=== PATIENT | female | born 1985 | race Caucasian/White ===

== ENCOUNTER 2017-04-26 19:44 | Emergency (ER) | payer OTHER ==
[~2017-04-26] VITALS: Ht 175.3 cm; Wt 86.4 kg
[2017-04-26 19:50] VITALS: BP 146/76; PULSE 66; RESP 16; O2SAT 100
--- NOTE | 2017-04-26 20:17 | ED.REPORT ---
HPI-General Illness Date of Service Apr 26, 2017 ED Provider: Bryce Biggs MD Pt is a 36 week 31 y/o female who presents to the ED complaining of nausea s/p exposure to carbon monoxide onset 22:30 last night. She was exposed to a leak in the hot water tank at her work for about 3 hours. Additional symptoms include headache and dizziness that have improved since yesterday. She denies vomiting, diarrhea, SOB, chest pain, rash or cough. Nursing Notes Stated Complaint: CARBON MONOXIDE EXPOSURE Chief Complaint: General Complaint Nursing Notes Reviewed: Yes Allergies: Coded Allergies: No Known Allergies (Unverified , 04/26/17) General Time Seen by MD: 20:17 Chief Complaint Other (Nausea) Hx Obtained From: Patient Arrived By: Walk-in Onset Occurred: Yesterday Recent Healthcare: No recent doctor visit, No recent hospitalization Similar Sx Previous: Yes Past Medical History Past Medical History 36 weeks Past Surgical History [place] teeth removal Smoking History Unknown if Ever Smoker Ambulatory Status Independent Review of Systems Full Review of Systems Respiratory: Denies: Non-productive cough, Prod cough, clear, Shortness of breath Cardiovascular: Denies: Chest pain GI: Reports: Nausea, Denies: Diarrhea, Vomiting Skin: Denies Rash Neurologic: Reports: Dizziness, Headache Complete sys rev & neg: except as marked. Physical Exam FHT 120-130 Vital Signs Vital Signs Date Time Temp Pulse Resp B/P Pulse Ox O2 Delivery O2 Flow Rate FiO2 04/26/17 22:39 70 114/67 100 Room Air 04/26/17 19:50 36.8 66 16 146/76 100 Room Air Initial VS: Reviewed Head / Eyes: Atraumatic, Normocephalic Neck: Supple, Full range of motion Extremities: Vascular intact, Neuro intact, No swelling, No tenderness Neurologic: Alert, Oriented, Nonfocal Psychiatric: Mood/affect normal, Behavior normal, Normal thought content General/Constitutional: Awake, Alert, No acute distress, Cooperative, Not toxic appearing Respiratory / Chest: Atraumatic, Breath sounds NL, Breath sounds = bilat, No respiratory distress Cardiovascular: Heart rate NL, Regular rhythm, Heart sounds NL, No murmurs Abdomen: Abdomen gravid Skin: Atraumatic, Color NL, No rash, Warm, Dry No cyanosis of lips or digits Re-Eval/Medical Decision Med Decision/Clinical Course ABG 7.44/31/64/20.8 on FiO2 of 21. Carboxyhemoglobin level 0.9 methemoglobin 0.9 (abnormal at 1.5 or greater) Patient had mild symptoms of CO poisoning yesterday but symptoms have resolved. ABG today shows safe levels of carboxy and methemoglobin. Patient is reassured [facility] the baby. heart tones here were in the 120s. She will follow up with her ST[facility] LETTERER for routine care Source of Hx: Old records Time of Eval: 22:14 Patient Status: Condition improved Re-Evaluation/Progress Note: Patient rechecked. Discussed all labs and plan for discharge. Patient understands and agrees with plan. F/U instructions and RTER warnings given. All questions addressed at this time. Counseled Regarding: Diagnosis, Lab results, Need for follow-up, When/why to return to ED Discharge & Departure Primary Impression: Carbon monoxide exposure Additional Impressions: Weeks of gestation: 36 weeks Qualified Code: Z3A.36 - 36 weeks gestation of Nausea Dizziness Disposition: Home Discharge Condition All VS Reviewed: Yes Condition: Stable Patient Instructions: Carbon Monoxide Poisoning (ED) Additional Instructions: Thank you for entrusting us with your care tonight. The carbon monoxide level in your bloodstream did not return at a dangerous level today. I am glad that her symptoms have improved from yesterday. Please proceed to the [facility] center for monitoring of your baby. Follow-up with your ST[facility] as scheduled. Return for new or worsening symptoms Referrals: Tomas Garrett MD (PCP) Scribe Attestation Portions of this note were transcribed by Bina Ramirez and Lauryn Alan. I, Dr. Biggs, personally performed the history, physical exam and medical decision-making; I reviewed and confirmed the accuracy of the information in the transcribed note. Signed by: Zev Mccollum, 04/26/17. copies to: Tomas Garrett MD, Gary R DO Apr 26, 2017 20:17 Bina Ramirez Apr 26, 2017 20:42 LAURYN ALAN Apr 26, 2017 22:14
--- NOTE | 2017-04-26 21:57 | ABG ---
DateTimeAnalyzed 21:50:00 -_ pH ____7.440 - 7.350 7.450 pCO2 ___31.1__ -mmHg 35.0 45.0 pO2 ___64.1__ -mmHg 69.0 116 HCO3- ___20.8__ -mmol/L 22.0 26.0 ABE ___-2.1__ -mmol/L -2.0 2.0 tHb ___11.7__ -g/dL 12.0 18.0 O2Hb ___90.3__ -% COHb ____0.9__ -% 0.0 1.5 MetHb ____0.9__ -% 0.4 1.5 sO2 ___92.0__ -% FIO2 ___21.0__ -% Drawn By MM - Date/Time Notified____ 21:56:00 -_ Spontaneous_RR ___18.0__ -b/min Notified Whom DR ANDELIN - B 755 -mmHg tO2 ___14.8__ -Vol% [place] test _Positive -
[2017-04-26 22:39] VITALS: BP 114/67; PULSE 70; O2SAT 100
== END 2017-04-26 22:40 | disposition home or self-care (01) ==
LOC: SED 19:44
DX: O9A.213 Injury, poisoning and certain other consequences of external causes complicating pregnancy, third trimester (principal); T58.91XA Toxic effect of carbon monoxide from unspecified source, accidental (unintentional), initial encounter; Y93.89 Activity, other specified; Y92.69 Other specified industrial and construction area as the place of occurrence of the external cause; Y99.0 Civilian activity done for income or pay; Z3A.36 36 weeks gestation of pregnancy; R42 Dizziness and giddiness; R51 Headache; R11.0 Nausea

== ENCOUNTER 2017-05-21 02:38 | Inpatient (IN) | payer OTHER ==
[~2017-05-21] VITALS: Ht 177.8 cm; Wt 88.5 kg
[2017-05-21] MEDS ORDERED: Lactated Ringer's 1,000 ML IV SCH ×4 (04:42→12:55)
[2017-05-21] MEDS ORDERED: Lactated Ringer's 1,000 ML IV PRN (04:42)
[2017-05-21] MEDS ORDERED: Methylergonovine 0.2 mg/mL Inj IM PRN ×3 (04:45→12:45)
[2017-05-21] MEDS ORDERED: Sodium Chloride LOK Flush 10 mL Syringe IVFLUSH PRN (04:45)
[2017-05-21] MEDS ORDERED: fentaNYL-PF 50 mCg/mL 2 mL Inj IVPUSH PRN ×2 (04:45→12:55)
[2017-05-21] MEDS ORDERED: Ondansetron 2 mg/mL 2 mL Inj IVPUSH PRN ×2 (04:45→12:55)
[2017-05-21] MEDS ORDERED: Carboprost 250 mCg/mL Inj IM PRN ×3 (04:45→12:45)
[2017-05-21] MEDS ORDERED: Oxytocin 10 Unit/mL Inj IM PRN ×3 (04:45→12:45)
[2017-05-21] MEDS ORDERED: Oxytocin 30 Units/500 mL LR 30 UNITS in IV Premix 1 EACH IV PRN ×3 (04:45→12:45)
[2017-05-21] MEDS ORDERED: Hemorrhage Kit, Post Partum XX ONE ×3 (04:45→12:45)
--- NOTE | 2017-05-21 05:22 | HP ---
[address] [address] HISTORY AND PHYSICAL PATIENT: IRLANDA JON : 1985 MR#: [id number] ADMIT: 05/21/2017 JOB ID: [id number] DATE: 05/21/2017 [facility] NOTE: This is a 31-year-old, G 3, P 2, AB 0 woman, followed prenatally at [facility], see record for details. She has previously had two vaginal births, and is anticipating a third. Due date is May 25, 2017, placing her at 39 and 3/7 weeks of gestation on admission. course has been complicated by approximately 50 pounds of weight gain. She has been bothered by chronic sciatic issues. She previously was a smoker although she discontinued smoking with positive test. She declined the quad screen but did have level two sonogram. Note prior macrosomia, with patient requesting labor induction at 39+ weeks of gestation in an effort to have a smaller baby or at least avoid more significant macrosomia. In summary, then, the patient at 39 and 3/7 weeks of gestation, we admitted to [facility] at her request for labor induction, having favorable cervix, all in the setting of prior macrosomia. PHYSICAL EXAMINATION: On admission, last height, weight and blood pressure in the office 70 inches, 1193 pounds, 114/70. Neck: No thyromegaly. Lungs: Clear to auscultation and percussion. Heart: Regular in rate and rhythm. Abdomen: Fundal height 38 cm, positive heartbeat, vertex presentation. No surgical scarring. Pelvic examination: Last cervical check in the office at 4 cm dilatation, 75% effacement, -2 station (May 20, 2017).. DIAGNOSTIC DATA: Admission lab work to yet be obtained. IMPRESSION: 1. A 37 and 3/7 weeks . 2. Admission for labor induction at patient's request in setting of prior macrosomia. 3. Increased weight gain in (50 pounds). 4. Declined quad screen although underwent level two sonogram. 5. Negative group B strep, Rhesus factor positive (Rh), rubella immune. 6. Received tetanus, diphtheria and pertussis (Tdap) in . 7. HEIDI 1 per colposcopically directed biopsies, following low-grade squamous intraepithelial lesion (LGSIL) Pap, for planned Pap repeat . 8. Prior smoker, discontinued with positive test. 9. Chronic sciatic problems. 10. Prior intrauterine device use, planned control method for (?). 11. Reproductive history: Vaginal delivery x2, both induced, last child larger at 9 pounds at 41 weeks of gestation. Now, current . 12. No known drug allergies. 13. Family history of Bartter syndrome (the patient's brother and his have two children with this condition). PLAN: The patient will be admitted to [facility] on May 21, 2017 per her request for labor induction in the setting of prior macrosomia, noting favorable cervix.
[2017-05-21 07:59] LABS: Mean Corpuscular Hemoglobin 29.5 pg (27.0-35.0); Mean Corpuscular Volume 87.8 fL (81-100)
[2017-05-21] MEDS ORDERED: PNV1TABL9 PO (10:14)
[2017-05-21] MEDS ORDERED: fentaNYL 2 mCg/mL-Bupivicaine 0.125% 100 mL Premix EPIDURAL ONE (12:39)
[2017-05-21] MEDS ORDERED: HYDROcodone-APAP 5-325 mg Tablet PO PRN (12:45)
[2017-05-21] MEDS ORDERED: Witch Hazel-Glycerin Pads TOPICAL PRN (12:45)
[2017-05-21] MEDS ORDERED: Benzocaine (Dermoplast) 20% 60 Gm Spray TOPICAL PRN (12:45)
[2017-05-21] MEDS ORDERED: Measles-Mumps-Rubella Vaccine 0.5 mL Inj SUBQ ONE (12:45)
[2017-05-21] MEDS ORDERED: Influenza (Adult) Vaccine 0.5 mL Syringe IM ONE (12:45)
[2017-05-21] MEDS ORDERED: LANOlin HPA 7 Gm Ointment TOPICAL PRN (12:45)
[2017-05-21] MEDS ORDERED: TdaP Vaccine 0.5 mL Inj IM ONE (12:45)
[2017-05-21] MEDS ORDERED: Atropine 1 mg/10 mL (Code) Syringe IVPUSH PRN (12:55)
[2017-05-21] MEDS ORDERED: fentaNYL 2 mCg/mL-Bupiv 0.125% 100 ML EPIDURAL SCH (12:55)
[2017-05-21] MEDS ORDERED: Phenylephrine/NS-PF 100 mCg/mL 5 mL Syringe IVPUSH PRN (12:55)
[2017-05-21] MEDS ORDERED: Lactated Ringer's 500 ML IV ONE (12:55)
[2017-05-21] MEDS ORDERED: EPHEDrine Sulfate 50 mg/mL Inj IVPUSH PRN (12:55)
--- NOTE | 2017-05-21 12:55 | PCM.HPANE ---
Patient Data Surgeon Admitting Provider:Tomas Garrett MD Attending Provider:Tomas Garrett MD Primary Care Physician:Tomas Garrett MD Other Provider:Earnest Guaman Anesthesia Reason for Visit Induction INDUCTION Ht/WT & BMI Body Mass Index Allergies Coded Allergies: No Known Allergies (Unverified , 04/26/17) Past Anesthesia History Anesthesia History: Denies:: Abnormal Airway, Anesthesia Reactions, Difficult Intubation, Fam Anesthesia Reaction, Fam Malignant Hypertherm, Malignant Hyperthermia Diabetes History Hx Diabetes?: No Medications Reported Medications Pnv Cmb#21/Iron/Folic Acid ( Complete Caplet)1 Each Tablet1 Each PO DAILY 05/21/17 History History of ENT Problems?: No HEENT History: Denies:: Abnormal Airway Cataracts Difficult Intubation Dysphagia Glaucoma Hearing Problem Sinus Problem TMJ Denture Type: None Teeth Condition: Within Normal Limits Hx of Heart Problems?: No Cardiovascular History: Denies:: AICD Abdominal Aortic Aneurism Atrial Fibrillation Cardiac Surgery Chest Pain Congestive Heart Failure Coronary Artery Disease Edema Heart Murmur Hypertension Irregular Heartbeat Pacemaker Peripheral Vascular Rheumatic Fever Thrombophlebitis Valvular Heart Disease Hx of Respiratory Problem?: No Respiratory History: Denies:: Asthma COPD Chest Surgery Cough Dyspnea Emphysema Hemoptysis Oxygen Administration Pneumonia Pulmonary Embolism Tuberculosis Use of C-PAP Machine Use of Inhalers / NEBS Hx Neurologic Problems?: No Neurological History: Denies:: Alzheimer's Disease CVA Dementia Dizziness Headaches Multiple Sclerosis Parkinson's Disease Peripheral Neuropathy Seizures TIA Hx of GI Problems?: No Hx of Problems?: No HX of Peritoneal Dialysis: No Female Hx: Positive for:: Currently Hx Musculoskeletal Problems?: No Hx of Psycho/Social Problems?: No Hx Surgeries?: Yes (wisdom teeth.) Hx Any Other Health Problems?: No Hx Diabetes: No Hx Alcohol Use: YesHx Substance Use: No Smoking Status: Unknown if Ever Smoker Stop/Bang Treated for Sleep Apnea?: No Do You Have a CPAP Machine?: No S-Snoring: Do You Snore Loudly: No T-Tired: feel tired, fatigued: No O-Obsered: Observed not breath: No P-Blood Pressure: treated: No B- Body Mass Index > 35 kg/m2: No A- Age over 50: No N- Neck Large Circumference: No G- Gender Male: No BRYSON Risk Assessment: Low Risk, <3 Yes Risk Assessment Category Category 1A: Patient has history of documented sleep apnea, and HAS NOT received any narcotic, sedative or anesthesia administration during this stay. Category 1B: Patient has history of documented sleep apnea, and HAS received any narcotic , sedative or anesthesia administration during this stay Category 2: Patient has SUSPECTED Obstructive Sleep Apnea, and HAS received any narcotic , sedative or anesthesia administration during this stay. Category 3: Patient has SUSPECTED Obstructive Sleep Apnea and HAS NOT received narcotic, sedative or anesthesia administration during this stay. Category 4: Outpatient in Procedural Areas with known sleep apnea or who screen positive for High Risk via the STOP/BANG questionnaire. Exam Exam General Appearance: Alert, Oriented X3, Cooperative HEENT/AIRWAY: MP 1 Meds/Labs/Diagnostics Admission Meds Current Medications Lactated Ringer's 1,000 ml @ 125 mls/hr Q8H IV Last administered on 05/21/17 08:34; Start 05/21/17 at 04:42 Lactated Ringer's (Lr) 1,000 ml @ 125 mls/hr Q8H IV Last administered on 12:15; Start 05/21/17 at 04:46 Labs Test 05/21/17 07:45 White Blood Count 10.4th/mm3 (3.8-10.1) Red Blood Count 4.10mil/mm3 (3.90-5.20) Hemoglobin 12.1g/dL (12.0-15.6) Hematocrit 36.0% (35.0-46.0) Mean Corpuscular Volume 87.8fL (81-100) Mean Corpuscular Hemoglobin 29.5pg (27.0-35.0) Mean Corpuscular Hemoglobin Concent 33.6% (32.0-37.0) Red Cell Distribution Width 12.8% (12.3-15.4) Platelet Count 181bil/L (150-400) Plan Impression Patient chart reviewed, patient interviewed and anesthestic plan with risks, benefits, and alternatives discussed, and informed consent obtained. ASA Physical Status: ASA1 Normal Healthy Anesthetic Plan: Epidural Bene/Risks/Altern/Consents: Yes HP Complete Prior to Induction: Yes Alexsander Allen DO May 21, 2017 12:29
[2017-05-21] MEDS ORDERED: Ampicillin-Sulbactam Inj 3,000 MG in 0.9% Sodium Chloride 100 ML IV ONE (16:05)
--- NOTE | 2017-05-21 19:17 | OP ---
[address] [address] OPERATIVE REPORT PATIENT: IRLANDA JON : 1985 MR#: [id number] ADMIT: 05/21/2017 JOB ID: [id number] DATE OF SURGERY: 05/21/2017 SURGEON: Tomas Garrett MD [facility] NOTE: The patient was admitted this morning for labor induction in the setting of prior macrosomia, with the patient interested in having no larger baby than last one. Cervix is favorable and the patient understood benefits and risks, and pros and cons of labor induction, and she has signed informed consent. Artificial rupture of membranes was first accomplished and clear fluid was recovered. At close of artificial rupture of membranes exam, cervix was noted to be 4-4.5 cm dilated, 75% effaced, -1 to -2 station. Vertex presentation. heart tracing was acceptable. Pitocin therapy was initiated and increased progressively over time until ultimately contractions became subjectively and palpably and adequately frequent. Cervical dilatation progressed up to 6 cm range. The patient requested epidural for anesthesia, which was provided. The patient experienced reasonable pain relief. Cervix continued to progressively dilate to ultimately 10 cm, i.e. complete, ready to push. The patient did learn to push well after a period of time and although only gradual progress, did steadily and slowly descend, until ultimately . Head then delivered across intact perineum. This was then followed by delivery of the shoulders, body, and extremities, without shoulder dystocia. Baby was active and crying and vigorous and handed to mother for bonding. After a minute, umbilical cord was clamped and cut. Cord blood was obtained for routine studies. Betadine solution was used to cleanse the vulvovaginal region and there were no lacerations noted. Time was then spent awaiting delivery of the placenta, although this was not forthcoming despite a 30-minute timeframe. Placenta partially came down to the introitus, yet placenta was significantly adherent to the fundal aspect of the uterine cavity, and bleeding was beginning to increase. It was felt that manual extraction of the remainder of the adherent placenta would be appropriate for the purpose of reducing bleeding potential as increasing. It had also been 30 minutes, which is a reasonable time frame to wait. Hand was then advanced through the vaginal area, into the uterine cavity, and placenta with membranes were removed intact, with significant adherence, with what appeared to be accessory placental lobe. Uterine cavity was then curettaged digitally with fingers, and then curettaged with Zechariah's curette ( curette), accomplished in light of the significant placental and likely membranous retention requiring manual extraction. No additional tissue or membranes were recovered upon curettage. Final uterine cavity curettage digitally, with fingers, was then accomplished once again and uterine cavity was noted to be remaining small and uterus well contracted. Bleeding was minimal at this point, with total of approximately 300 mL. This marked the close of the procedure, with baby having been delivered vaginally, with placenta and membranes having been partially expelled then manual extraction accomplished with no obvious residual tissue remaining. curettage had been accomplished to ensure clean endometrial lining. It certainly is anticipated that mother and baby will do very well during the timeframe. Pain medication will be ordered for the patient if needed and a single dose of Unasyn 3 g provided simply as prophylaxis against infection in light of intrauterine manipulation. MTDD
[2017-05-22 07:15] LABS: Mean Corpuscular Hemoglobin 29.3 pg (27.0-35.0)
--- NOTE | 2017-05-22 14:01 | PCM.DIOB ---
Obstetrical Disch Instruction Dates of Hospitalization Date of Hospital Admission May 21, 2017 at 06:56 Providers Admitting Physician: Tomas Garrett MD Primary Care Physician: Tomas Garrett MD Attending Physician: Tomas Garrett MD Discharge Diagnosis Problems: (1) Status: Acute ICD Code: Z33.1 Diet Discharge Diet: No restrictions Activity Discharge Activity-General: Pelvic Rest for 6 weeks Dressing and Incisional Care Hygiene: May shower, Perineal care, Sitz bath, Dermoplast spray, Witch Viviana pads, Ice Follow Up Plan Follow-up appointment: Weeks (Follow up in 6 weeks for check-up.) Call your provider for: Fever or Chills, Shortness of breath, Heavy vaginal bleeding, Red painful breasts Tomas Garrett MD May 22, 2017 14:01
[2017-05-22] MEDS ORDERED: DOCU-41 PO (14:02)
[2017-05-22] MEDS ORDERED: IBUP-1827 PO (14:02)
[2017-05-22 15:28] VITALS: BP 107/66; PULSE 62; RESP 18
--- NOTE | 2017-05-22 19:04 | DIS ---
[address] [address] DISCHARGE SUMMARY PATIENT: IRLANDA JON : 1985 MR#: [id number] ADMIT: 05/21/2017 JOB ID: [id number] DIS: 05/22/2017 DISCHARGE DIAGNOSES: 1. Term , delivered. 2. Retained placenta, requiring manual extraction. PROCEDURES PERFORMED DURING HOSPITALIZATION: 1. Labor induction. 2. Vaginal delivery. 3. Manual extraction of placenta. 4. curettage. 5. Epidural anesthesia. HOSPITAL COURSE: The patient admitted to [facility] on May 21, 2017, on which day listed procedures were accomplished. During the timeframe, patient did well, with stable vitals, afebrile, with reasonable bleeding and pain management, ambulating, and voiding and handling baby well. hemoglobin was okay. Patient requested discharge to home on the first day, i.e., on May 22, 2017, and her request was granted. DISCHARGE PROGRAM: Patient will call p.r.n. heavy bleeding, high fever, or other problem. Otherwise, she will follow up at six weeks for checkup at [facility]. She will observe pelvic rest for six weeks. DISCHARGE MEDICATIONS: Include ibuprofen 600 mg and Colace 100 mg. Prescriptions written. Patient will also use vitamin at home while nursing, and she has supply.
--- NOTE | 2017-05-27 09:17 | PATH ---
SURGICAL PATHOLOGY Attending Physician:Tomas Garrett M.D CASE STATUS: Signed Out PATIENT NAME: IRLANDA JON PID: [id number] : 1985 DATE COLLECTED:05/21/2017 00:00 SPECIMEN: Placenta CLINICAL HISTORY: RETAINED PLACENTA WITH ACCESSORY LOBE 1). PLACENTA FINAL DIAGNOSIS: Retained Placenta with Accessory Lobe, Vaginal Delivery: - Alfaro placenta with accessory lobe (479 grams and 29 grams, respectively). - Three-vessel umbilical cord with no evidence of inflammation. - membranes with no evidence of inflammation. - Active deciduitis with no evidence of viral cytopathic effect or fungal organisms. - Villous morphology appropriate for gestational age. 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 ICD10: O73.0 GROSS DESCRIPTION: The specimen is received in formalin, labeled with the patient's name, and consists of an intact placenta which includes the placental disc (479 g, 22.5 x 15.7 x 2.5 cm), accessory lobe (27 g, 7.5 x 5.4 x 1.3 cm), membranes and umbilical cord (length-19.0 cm, diameter-1.5 x 1.0 cm). The membranes are ruptured 6.2 cm from the free edge of the placenta and are rubbery and semitranslucent. The umbilical cord has a furcate insertion 0.8 cm from the edge of the placenta and contains 3 vessels. The surface is smooth and shiny with raised dilated vessels. No evidence of meconium is identified. The maternal surface is dark maroon with normal cotyledon formation. The placental body is spongy and contains a densely fibrous area (6.0 x 2.5 x 2.2 cm) underlying the umbilical cord insertion. The area involves the complete cross section. Multiple single and clusters of fibrous deposits (0.1 x 0.1 x 0.1 cm-0.5 x 0.4 x 0.2 cm) are identified throughout the body involving approximately 50% of the placenta. The accessory lobe is fibrous along the periphery. A yellow-orange hemorrhagic area (1.1 x 0.5 x 0.2 cm) is identified within the body 0.2 cm from the and 0.7 cm from the maternal surfaces. No nodules, masses, or hematomas are identified. Section code: (A) edge of placenta with membranes, umbilical cord; (B-F) placenta, 5 full-thickness sections, B-C are adjacent sections; (G, H) accessory lobe, 2 full-thickness sections. 05/23/17 ICD-9 CODES: CPT CODES: 1: 77985 Electronically Signed Out Eddie Hoffmann MD [facility] Pathology [facility] [address], [place] [address] Technical component performed at [facility], [facility] [address], [place], [address]
== END 2017-05-22 16:25 | disposition home or self-care (01) | DRG 767 ==
LOC: FBC 06:56
PROVIDERS: ADMIT Obstetrics & Gynecology; ATTEND Obstetrics & Gynecology
PROC: 10E0XZZ Delivery of Products of Conception, External Approach (ICD-10-PCS; principal; 2017-05-21)
PROC: 10D17ZZ Extraction of Products of Conception, Retained, Via Natural or Artificial Opening (ICD-10-PCS; 2017-05-21)
PROC: 10907ZC Drainage of Amniotic Fluid, Therapeutic from Products of Conception, Via Natural or Artificial Opening (ICD-10-PCS; 2017-05-21)
PROC: 3E033VJ Introduction of Other Hormone into Peripheral Vein, Percutaneous Approach (ICD-10-PCS; 2017-05-21)
DX: O73.0 Retained placenta without hemorrhage (principal); Z37.0 Single live birth; Z3A.39 39 weeks gestation of pregnancy